=== PATIENT | male | born 1975 | race Caucasian/White ===

== ENCOUNTER 2024-02-10 17:47 | Emergency (ER) | payer BC, SELFPAY ==
[2024-02-10 18:09] VITALS: BP 133/79; PULSE 109; RESP 20; TEMP 37.3; O2SAT 95; BMI 34.2
--- NOTE | 2024-02-10 18:27 | EKG_ITS ---
[facility] Test Date: 2024-02-10 Pat Name: MAGALYS DUVAL Department: Room: - Gender: Male [employer] Build [employer]: : 1975 Requested By: Cj Mak Order Number: [id number] Reading MD: Cj Mak Measurements Intervals [place] Rate: 106 P: 46 ME: 148 QRS: 89 QRSD: 102 T: 49 QT: 323 QTc: 429 Interpretive Statements SINUS TACHYCARDIA ABNORMAL RHYTHM ECG Compared to ECG 06/22/2023 19:06:17 Right-axis deviation no longer present /store/S0/[id number].pdf
--- NOTE | 2024-02-10 18:27 | XR_ITS ---
Examination: PA lateral chest 2 views Technique: Upright PA lateral chest 2 views Exam date and time: February 10, 2024 1839 hrs. Comparison June 22, 2023 Indications: Covid positive patient 2 weeks ago with difficulty breathing. Findings: Normal heart size Lungs are clear. The osseous structures are intact Impression: No active disease
--- NOTE | 2024-02-10 18:28 | PD.EDRME ---
Rapid Medical Screening Exam [facility] Arrival date/time: 02/10/24 17:47 49M with history of HTN presents to ED with several weeks of cough and SOB. Patient has been on Z-alyssa and Levofloxacin w/o improvement. Chief Complaint: Shortness of Breath/Dyspnea Time Seen by Provider: 02/10/24 18:31 Vital signs: Vital Signs Temperature 99.2 F 02/10/24 18:09 Pulse Rate 109 H 02/10/24 18:09 Respiratory Rate 20 02/10/24 18:09 Blood Pressure 133/79 H 02/10/24 18:09 Pulse Oximetry (%) 95 02/10/24 18:09 Oxygen Delivery Method Room Air 02/10/24 18:09
[2024-02-10 19:02] LABS: Lactate (Lactic Acid) 3.2 mMol/L (0.4-2.0)
[2024-02-10 19:03] LABS: Basophils % (Auto) 0 % (0-2.5); Eosinophils # (Auto) 0.1 Thou/mm3 (0.0-0.5); Eosinophils % (Auto) 1 % (0-10); Hematocrit 47.6 % (41.0-53.0); Hemoglobin 16.3 g/dL (13.5-16.0); Immature Granulocytes % (Auto) 0 % (0-0); Immature Granulocytes Auto 0.06 Thou/mm3 (0.00-0.00); Lymphocytes # (Auto) 1.8 Thou/mm3 (1.0-4.8); Lymphocytes % (Auto) 12 % (10-50); Mean Corpuscular HGB Conc 34.2 g/dl (31.0-37.0); Mean Corpuscular Hemoglobin 30.2 pg (25.0-35.0); Mean Corpuscular Volume 88 fL (80-100); Monocytes # (Auto) 0.7 Thou/mm3 (0.0-0.8); Monocytes % (Auto) 5 % (0-12); Neutrophils % (Auto) 81 % (37-80); Nucleated Red Blood Cell % 0 /100 WBC (0); Platelet Count 342 Thou/mm3 (140-440); RDW Standard Deviation 39.7 fL (35.1-43.9); White Blood Count 14.7 Thou/mm3 (3.8-10.6)
[2024-02-10 19:24] LABS: B-Type Natriuretic Peptide < 20 pg/mL (0-100)
[2024-02-10 19:30] LABS: Alanine Aminotransferase 43 U/L (10-49); Albumin, Serum 4.4 gm/dL (3.5-5.0); Albumin/Globulin Ratio 1.7 (1.2-2.2); Alkaline Phosphatase 79 U/L (46-116); Anion Gap 10 (7-16); Aspartate Amino Transferase 20 U/L (0-34); BUN/Creatinine Ratio 11 Ratio (12-20); Bilirubin,Total 0.6 mg/dL (0.3-1.2); Blood Urea Nitrogen 12 mg/dL (9-23); Carbon Dioxide 22.3 mMol/L (20.0-31.0); Chloride 103 mMol/L (98-107); Creatinine (Component) 1.1 mg/dL (0.6-1.3); Estimated Creatinine Clearance 99.2 mL/min (>60); Globulin 2.6 gm/dL (2.3-3.5); Glucose 373 mg/dL (74-106); Osmolality,Calculated 284 (275-295); Potassium 4.3 mMol/L (3.4-5.1); Sodium 135 mMol/L (136-145); Troponin I < 0.020 ng/mL (0.0-0.045); eGFR > 60 See Note
[2024-02-10 19:33] LABS: Procalcitonin 0.06 ng/ml (0.0-0.49)
[2024-02-10 20:36] VITALS: BP 125/81; PULSE 103; RESP 20; O2SAT 95
[2024-02-10 20:39] VITALS: BP 125/81; PULSE 99; RESP 14; TEMP 36.7; O2SAT 96
--- NOTE | 2024-02-10 21:13 | PD.EDSOB ---
ED SOB =RME/HPI General Chief Complaint: Shortness of Breath/Dyspnea Stated Complaint: SOB- FAILED OUTPT PNA TX Time Seen by Provider: 02/10/24 18:31 Arrival date/time: 02/10/24 17:47 Limitations: no limitations RME / HPI RME / HPI Narrative: 02/10/24 17:47 49M with history of HTN presents to ED with several weeks of cough and SOB. Patient has been on Z-eliecer and Levofloxacin w/o improvement. DR. VÁSQUEZ MAIN ED EVALUATION: 49-year-old male with history of recurrent pneumonia, and valley fever, history of hypertension and fibromyalgia coming in with 3 weeks of shortness of breath. The patient states his symptoms started the first week with pneumonia-like symptoms, cough, and was treated with a Z-Eliecer and steroids. Approximately 1 week later the patient stated that he did not feel better and had body aches. At that time he was tested positive for COVID and took a week of Paxlovid. In the last 1 week the patient continues to feel weak in general has shortness of breath and has a nonproductive wet cough. No vomiting. No blood in his stool. No vomiting blood. No other sick contacts. Related Data Previous Rx's ?Medication ?Instructions ?Recorded azithromycin 250 mg tablet See Rx Instructions PO .COMPLEX #6 01/29/23 (Zithromax Z-Eliecer) tabs doxycycline hyclate 100 mg capsule 100 mg PO BID #20 caps 06/23/23 Allergies Allergy/AdvReac Type Severity Reaction Status Date / Time hydrocodone Allergy Severe ITCHING Verified 02/10/24 17:48 Review of Systems Review of Systems Systems Reviewed: All systems reviewed, normal except as documented Narrative Review of Systems: GEN: No fever, no chills, no weight loss, + body aches EYES: No discharge, no visual changes, no pain HEENT: No ear pain, no congestion, no sore throat PULM: + shortness of breath, + cough CV: No chest pain, no dyspnea on exertion, no palpitations GI: No nausea, no vomiting, no diarrhea, no pain, no constipation : No frequency, no urgency and no dysuria MUSC/SKEL: No joint pain, no back pain SKIN: No rash PSYCH: No hallucinations, no depression HEME/LYMPH: No easy bleeding or bruising tendencies NEURO: + generalized weakness, no headache Past Medical History Past Medical History CARDIAC: Positive Hypertension MUSCULOSKELETAL: Positive Musculoskeletal Disorders and Gout PSYCHO/SOCIAL: Positive Anxiety Social History SMOKING STATUS: Never smoker SUBSTANCE USE: does not use ALCOHOL: Never ED Exam Narrative Physical exam: Patient appears like he does not feel well. Fatigue. General Limitations: Present no limitations General appearance: Present alert and anxious; Absent lethargic, obtunded or in distress Head Head exam: Present atraumatic Eye Eye exam: Present normal appearance and EOMI; Absent scleral icterus ENT ENT exam: Present normal exam, normal oropharynx and mucous membranes dry Neck Neck exam: Present normal inspection, full ROM and trachea midline Chest Chest inspection: Present normal inspection and symmetric chest wall rise Respiratory Respiratory exam: Present other (Mild rhonchi.) Cardiovascular Cardiovascular exam: Present normal rhythm, tachycardia and normal heart sounds Abdominal Exam Abdominal exam: Present soft and normal bowel sounds; Absent distention, tenderness, guarding, rebound or rigidity exam: Present other (Deferred) Extremities Exam Extremities exam: Present normal inspection and full ROM Back Exam Back exam: Present normal inspection and full ROM; Absent tenderness, CVA tenderness (R) or CVA tenderness (L) Neurological Exam Neurological exam: Present alert, oriented X3 and CN II-XII intact Psychiatric Psychiatric exam: Present normal affect and normal mood Skin Skin exam: Present warm, dry and normal color; Absent diaphoresis, erythema or mottled Course Course Course Narrative: I had a long discussion with the patient. At this time he feels significantly better and is tolerating p.o. His repeat lactate is down to 2.5. There is no obvious source for infection and since the patient's been on multiple antibiotics my suspicion is that this may be viral or this is just post-COVID lingering. The patient otherwise has no pulmonary embolism on CT angio. I have given him the option of staying for observation versus being discharged home and at this time he would like to get a trial at home. Strict return precautions are given and understood. Patient specific gravity is slightly elevated in the urine even after IV fluids. Will give additional 500 the patient is now tolerating p.o. I encouraged him to ensure that he is drinking enough fluids to stay hydrated. Quality Measures Current suspected stage: sepsis Possible source: pulmonary Blood cultures ordered: yes Antibiotic ordered: Yes Pertinent labs: 02/10/24 02/10/24 18:48 22:24 Lactic Acid 3.2 H mMol/L 2.5 H mMol/L (0.4-2.0) (0.4-2.0) Procalcitonin 0.06 ng/ml (0.0-0.49) 2036: Sepsis alert initiated. Orders made at this time are congruent with ED Adult Sepsis Order List. Re-evaluation is to be completed. 2151: Fluids started. 2219: Sepsis reassessment performed consisting of lab review, vitals, physical exam including auscultation of heart, lungs, and visual evaluation of capillary refills, mucosal membranes and extremities. sepsis Orders Category Date Time Status CT Screening NOW Care 02/10/24 21:16 Active EKG (ED ONLY) *Do not use* NOW Care 02/10/24 18:[address] angio chest Stat Exams 02/10/24 21:16 Completed EKG (ED Only) Stat Exams 02/10/24 18:27 Draft XR chest 2V Stat Exams 02/10/24 18:27 Completed B-Type Natriuretic Peptide Stat Lab 02/10/24 18:48 Completed Blood Culture (Lab) Stat Lab 02/10/24 21:15 Received CBC Stat Lab 02/10/24 18:48 Completed Cocci Serology IgM with reflex to IgG [Cocci Serology, Lab 02/10/24 18:48 Received Unk History] Stat Comprehensive Metabolic Panel Stat Lab 02/10/24 18:48 Completed Lactate (Lactic Acid) Stat Lab 02/10/24 18:48 Completed Lactic Acid, 3 HR Stat Lab 02/10/24 22:24 Completed Procalcitonin Stat Lab 02/10/24 18:48 Completed Troponin I Stat Lab 02/10/24 18:48 Completed Urinalysis Stat Lab 02/10/24 23:18 Completed Urinalysis, C/S if Indicated Stat Lab 02/10/24 23:18 Completed Benzonatate [Tessalon] Med 02/10/24 21:19 Discontinued 200 mg PO X1 ONE Dexamethasone Inj [Decadron Inj] Med 02/10/24 21:19 Discontinued 10 mg IVP X1 ONE SODIUM CHLORIDE 0.9% @ Wide Open(500ml) Med 02/11/24 00:12 Ordered Sodium Chloride 0.9% 500 ml [Ns] 500 ml IV 999 mls/hr Sodium Chloride 0.9% 1000 ml [Ns] 1,000 ml Med 02/10/24 21:16 Discontinued IV 999 mls/hr Sodium Chloride 0.9% 1000 ml [Ns] 3,157 ml Med 02/10/24 21:15 Discontinued IV 3,157 mls/hr Reevaluation(s) Reevaluation #1: Patient feels better and states he feels comfortable going home. Time: 23:15 Vital Signs Vital signs: Vital Signs Temperature 99.2 F 02/10/24 18:09 Pulse Rate 109 H 02/10/24 18:09 Respiratory Rate 20 02/10/24 18:09 Blood Pressure 133/79 H 02/10/24 18:09 Pulse Oximetry (%) 95 02/10/24 18:09 Oxygen Delivery Method Room Air 02/10/24 18:09 Shortness of Breath / Dyspnea MDM Narrative MDM Narrative:: Differential diagnosis includes pneumonia, viral syndrome, reexacerbation of his valley fever, pulmonary embolism, pleural effusion, atypical presentation of coronary artery disease. Dehydration, electrolyte abnormality Jerrica Mcdonald am scribing for and in the presence of Dr. Vásquez. Patient data External records reviewed:: [facility] previous records (Reviewed last ED visit dated 06/23/23, discharged with the following: Atypical chest pain.) Clinical information provided by:: patient Social determinants that could affect healthcare access:: none Patient has the following chronic illnesses:: Recurrent pneumonia, Valley fever, hypertension, and fibromyalgia. How is presenting disease/condition affected by chronic disease/condition?: exacerbated by Evaluation data The following diagnostics were reviewed and interpreted by me:: lab results, radiology exam(s) and EKG tracing(s) (done at 1829, sinus tachycardia, rate of 106, no ST elevations or depressions, normal intervals, QTc: 385, similar to previous EKG done in June of 2023, according to my interpretation.) Lab and/or radiology exams considered but not ordered:: none Interpretation Summary: Procedure(s): XR chest 2V Accession Number(s): [id number] cc: Dhruv West MD; Cj Mak PA-C; Peggy Lassiter NP~ Examination: PA lateral chest 2 views Technique: Upright PA lateral chest 2 views Exam date and time: February 10, 2024 1839 hrs. Comparison June 22, 2023 Indications: Covid positive patient 2 weeks ago with difficulty breathing. Findings: Normal heart size Lungs are clear. The osseous structures are intact Impression: No active disease Dictated By: Dhruv West MD [facility] Report Signed Patient: MAGALYS DUVAL. Record#: [id number] Birthdate: 1975 Age/Sex: 49/ M Location: [facility] Attending Dr: Ordering Physician: aNva Vásquez MD Date of Service: 02/10/24 Procedure(s): CT angio chest Accession Number(s): [id number] cc: Dhruv West MD; Nava Vásquez MD; Peggy Lassiter NP~ Examination: CTA chest with intravenous contrast 2-D reconstructions 3-D reconstructions, vascular Date and time of exam: February 10, 2024 2146 hrs. Comparison June 23, 2023 Indications: Shortness of breath hypoxia chest pain beginning 3 weeks ago CTDI: vol (mGy) 27.24 DLP: (mGycm) 6 Technique: Multiple axial sections of the thorax have been obtained. 3 mm slice thickness, from below the hemidiaphragms to above the apices of the lungs. Mediastinal and lung density settings have been obtained. 2-D sagittal and coronal reconstructions. 3-D angiographic renderings, 3-D volume renderings, 3D post processing, vascular maximum intensity projections obtained. Contrast administered is 100 cc Isovue-370. Low dose protocols were performed. One or more of the following dose reduction techniques were used; automated exposure control, adjustment of the mA and/or KV according to patient size, use of iterative reconstruction technique. Findings: No thoracic aortic aneurysm dilatation or dissection No pulmonary artery emboli No paratracheal tracheobronchial or bronchopulmonary adenopathy No pneumonia or pulmonary edema or pleural disease Contracted gallbladder No pancreatic liver or splenic mass noted No hydronephrosis Impression: Negative for pulmonary artery emboli No mediastinal lymphadenopathy No pneumonia, pulmonary edema, pleural disease or pulmonary nodules Dictated By: Dhruv West MD Signed By: <Electronically signed by Dhruv West MD in OV> 02/10/24 5431 Medications / Prescriptions Medications or Prescriptions considered but not ordered:: none Medication administrations:: Medication Administration History Discontinued Medications Benzonatate (Benzonatate 100 Mg Capsule) 200 mg PO X1 ONE; Protocol Stop: 02/10/24 21:20 Last Admin: 02/10/24 23:44 Dose: 200 mg Documented By: SUMEET Dexamethasone Sodium Phosphate (Dexamethasone Sod Phos Inj 4 Mg/Ml Vial) 10 mg IVP X1 ONE; Protocol Stop: 02/10/24 21:20 Last Admin: 02/10/24 21:52 Dose: 10 mg Documented By: SUMEET Sodium Chloride (Ns) 3,157 mls @ 3,157 mls/hr 30 ml/kg infuse over 60 min (3157 ml) IV .Q1H ONE; Protocol Stop: 02/10/24 22:14 Sodium Chloride (Ns) 1,000 mls @ 999 mls/hr IV .Q1H1M ONE Stop: 02/10/24 22:16 Last Infusion: 02/11/24 00:02 Dose: Infused Documented By: Admin: 02/10/24 21:52 Dose: 999 mls/hr Documented By: SUMEET see above Consultations Consultation(s) initiated? (list below): No Diagnosis Shortness of Breath Differential Diagnosis: other (pneumonia, viral syndrome, reexacerbation of his valley fever, pulmonary embolism, pleural effusion, atypical presentation of coronary artery disease. Dehydration, electrolyte abnormality.) Most likely diagnosis given after review of the tests above:: see below Admission Indicated Admission indicated?: not indicated Admission Request Was there a request for admission?: No Disposition Plan Disposition Plan: Discharge Discharge Attestation Discharge Attestation: The patient and all family members were given an opportunity to ask questions and understood the discharge instructions. Discharge instructions specifically effects, indications for sooner follow up or return to the emergency department, and the expected course of current diagnosis. Patient condition: Stable Critical Care Time Critical Care Time Critical Care Time: Yes Total Critical Care Time (min.): 30 Attestation: The high probability of sudden, clinically significant deterioration in the patient?s condition required the highest level of my preparedness to intervene urgently. The services I provided to this patient were to treat and/or prevent clinically significant deterioration. Services included the following: chart data review, reviewing nursing notes and/or old charts, documentation time, workforce consultant collaboration regarding findings and treatment options, medication orders and management, direct patient care, vital sign assessments and ordering, interpreting and reviewing diagnostic studies and lab tests. Aggregate critical care time includes only time during which I was engaged in work directly related to the patient?s care, as described above, whether at bedside or elsewhere in the Emergency Department. It did not include time spent performing other reported procedures or the services of residents, students, nurses or physician assistants. Discharge Plan Plan Patient Disposition: HOME (Self Care) Patient condition on transfer: Stable Prescriptions/Referrals Prescriptions/Med Rec: No Action azithromycin [Zithromax Z-Eliecer] 250 mg tablet See Rx Instructions PO .COMPLEX Qty: 6 0RF Rx Instructions: For 250 mg dose pack: take 500 mg today (day 1), then 250 mg for 4 days (days 2-5) doxycycline hyclate 100 mg capsule 100 mg PO BID Qty: 20 0RF Referrals: Peggy Lassiter NP [Primary Care Provider] - In 1 week Problem List Clinical Impression: Acute dehydration Patient/Caregiver Discharge Instructions Education Materials: ED Dehydration (Adult) Additional Instructions: 1. Please continue to stay hydrated with Pedialyte and Gatorade. Not eating or drinking can make you feel worse. 2. Continue your medications as per your primary care physician. 3. Please follow-up with your primary care in 48 hours to get the results of the blood cuture Print Language: Monegasque Stand Alone Forms: [employer] Award Info., Patient Portal Info Letter
--- NOTE | 2024-02-10 21:16 | XR_ITS ---
Examination: CTA chest with intravenous contrast 2-D reconstructions 3-D reconstructions, vascular Date and time of exam: February 10, 2024 2146 hrs. Comparison June 23, 2023 Indications: Shortness of breath hypoxia chest pain beginning 3 weeks ago CTDI: vol (mGy) 27.24 DLP: (mGycm) 6 Technique: Multiple axial sections of the thorax have been obtained. 3 mm slice thickness, from below the hemidiaphragms to above the apices of the lungs. Mediastinal and lung density settings have been obtained. 2-D sagittal and coronal reconstructions. 3-D angiographic renderings, 3-D volume renderings, 3D post processing, vascular maximum intensity projections obtained. Contrast administered is 100 cc Isovue-370. Low dose protocols were performed. One or more of the following dose reduction techniques were used; automated exposure control, adjustment of the mA and/or KV according to patient size, use of iterative reconstruction technique. Findings: No thoracic aortic aneurysm dilatation or dissection No pulmonary artery emboli No paratracheal tracheobronchial or bronchopulmonary adenopathy No pneumonia or pulmonary edema or pleural disease Contracted gallbladder No pancreatic liver or splenic mass noted No hydronephrosis Impression: Negative for pulmonary artery emboli No mediastinal lymphadenopathy No pneumonia, pulmonary edema, pleural disease or pulmonary nodules
[2024-02-10] MEDS: SODIUM CHLORIDE 0.9% 1000 ML 1,000 ML 999 ML IV (21:52)
[2024-02-10] MEDS: DEXAMETHASONE SOD PHOS INJ 4 MG/ML VIAL 10 MG IVP (21:52)
[2024-02-10 22:00] LABS: Reflex Lactate? Y
[2024-02-10 22:34] LABS: Lactic Acid, 3 HR 2.5 mMol/L (0.4-2.0)
[2024-02-10 23:17] VITALS: BP 138/82; PULSE 82; RESP 16; TEMP 36.7; O2SAT 95
[2024-02-10 23:43] LABS: Collection Type, Urine Voided; Squamous Epithelial Cell,Urine 0 /hpf (0-5); WBC,Urine 0 /hpf (0-5)
[2024-02-10] MEDS: BENZONATATE 100 MG CAPSULE 200 MG PO (23:44)
[2024-02-10 23:55] LABS: Bilirubin,Urine Negative (Negative); Blood,Urine Negative (Negative); Clarity,Urine Clear (Clear/Hazy); Color,Urine Lt-Yellow (Lt Yel-Yel); Culture Indicated,Urine Not Indicated; Glucose, Urine 4+ (Negative); Ketones,Urine Trace (Negative); Leukocyte Esterase,Urine Negative (Negative); Nitrite,Urine Negative (Negative); Protein,Urine Negative (Neg - Trace); RBC,Urine 1 /hpf (0-3); Specific Gravity,Urine 1.045 (1.001-1.035); Urobilinogen,Urine Negative mg/dL (0.0-1.0)
[2024-02-11] MEDS: SODIUM CHLORIDE 0.9% 500 ML 500 ML 999 ML IV (00:13)
[2024-02-11 13:12] LABS: Cocci Serology, IgM Negative (Negative)
[2024-02-12 13:26] LABS: Cocci Serology, IgG Negative (Negative)
== END 2024-02-11 01:10 | disposition home or self-care (01) ==
PROVIDERS: Physician Assistant; Emergency Provider Emergency Medicine; PCP Registered Nurse
DX: E86.0 Dehydration (principal); R00.0 Tachycardia, unspecified
CPT/HCPCS: 36415; 71046; 71275; 80053; 81001; 83605; 83880; 84145; 84484; 85025; 86331; 86635; 87040; 93005; 96361; 96374; 99291; A4649; J1100; J7030; J7040; Q9967; A9270